=== PATIENT | female | born 1975 | race American Indian/Alaskan Native ===

== ENCOUNTER 2020-09-24 15:21 | Emergency (ER) | payer MEDICAID ==
--- NOTE | 2020-09-24 19:28 | EDM.PDOC ---
ED HPI GENERAL MEDICAL PROBLEM - General Chief Complaint: Skin Complaint Stated Complaint: RASH AND SWELLIN Time Seen by Provider: 09/24/20 18:00 Source of Information: Reports: Patient History Limitations: Reports: No Limitations - History of Present Illness INITIAL COMMENTS - FREE TEXT/NARRATIVE: Tammy is a 45-year-old female presenting to the ED for evaluation of rash that started out just above her buttocks 1 month ago and now spread to include her right lower extremity on the lateral aspect of the calf going down to the ankle. The lesions are initially pruritic but then break open and become very painful. They have ulcerative bases and are weeping plasma. There has been some purulent discharge as well. The area around the rash is inflamed. The patient denies any fever or chills. She is diabetic but is not on any medication at this time. Her last hemoglobin A1c was 5.0. She was initially seen and treated for this at [facility] which they thought was shingles, however, it is bilateral in the buttock area and on the lateral side of the right calf. I do not see any sign at this time of vesicles. Right Lower Leg Pain Score (Numeric/FACES): 8 - Related Data Allergies Allergy/AdvReac Type Severity Reaction Status Date / Time No Known Allergies Allergy Verified 09/24/20 17:01 Home Meds: Home Meds Acetaminophen [Pain Relief] 975 mg PO BEDTIME 09/24/20 [History] Escitalopram [Lexapro] 20 mg PO DAILY 09/24/20 [History] Gabapentin [Neurontin] 300 mg PO TID 09/24/20 [History] Lisinopril/Hydrochlorothiazide [Lisinopril-Hctz 20-12.5 mg Tab] 1 each PO DAILY 09/24/20 [History] Methadone [methadone Intensol U/D] 120 mg PO DAILY 09/24/20 [History] Past Medical History HEENT History: Reports: None Cardiovascular History: Reports: Hypertension Respiratory History: Reports: None Gastrointestinal History: Reports: Cholelithiasis Genitourinary History: Reports: None [employer] History: Reports: Musculoskeletal History: Reports: Arthritis Neurological History: Reports: Neuropathy, Diabetic, Other (See Below) Other Neuro History: nerve pain Psychiatric History: Reports: Anxiety, Depression Endocrine/Metabolic History: Reports: Diabetes, Type II Hematologic History: Reports: None Immunologic History: Reports: None Oncologic (Cancer) History: Reports: None Dermatologic History: Reports: Other (See Below) Other Dermatologic History: skin sores buttock and right lower leg - Infectious Disease History Infectious Disease History: Reports: Chicken Pox, Shingles - Past Surgical History HEENT Surgical History: Reports: None GI Surgical History: Reports: Cholecystectomy Social & Family History - Caffeine Use Caffeine Use: Reports: Coffee, Soda - Recreational Drug Use Recreational Drug Use: Yes Recreational Drug Type: Reports: Other (see below) Other Recreational Drug Type: narcotics none since 2011 ED ROS GENERAL - Review of Systems Review Of Systems: See Below Constitutional: Reports: No Symptoms HEENT: Reports: No Symptoms Respiratory: Reports: No Symptoms Cardiovascular: Reports: No Symptoms Endocrine: Reports: No Symptoms GI/Abdominal: Reports: No Symptoms : Reports: No Symptoms Musculoskeletal: Reports: No Symptoms Skin: Reports: Lesions (Painful ulcerative lesions on the low back just above the buttocks bilaterally and on the right lateral calf. Lesions are initially pruritic but then become very tender when they erupt form ulcers. ) Neurological: Reports: No Symptoms Psychiatric: Reports: No Symptoms Hematologic/Lymphatic: Reports: No Symptoms Immunologic: Reports: No Symptoms ED EXAM, SKIN/RASH Exam: See Below Exam Limited By: No Limitations General Appearance: Alert, No Apparent Distress Back Exam: Other (Numerous skin lesions that are ulcerative on the low back and buttocks. These lesions are no longer weeping, however, they have deep cratered ulcers that are starting to heal.) Neurological: Alert, Oriented, Normal Cognition, No Motor/Sensory Deficits Skin: Wound/Incision (Ulcerative lesions on the buttock, low back, and right lateral calf. The lesions on the calf are deep ulcers with purple borders and are weeping serosanguineous fluid and suppurative fluid. The lesions are very tender.) Location, Skin: Back, Lower Extremity, Right Characteristics: Other (Ulcerative with purple edges) Associated features: Warmth, Tenderness, Swelling, Induration, Inflammation, Weeping Lymphatic: No Adenopathy Course - Vital Signs Last Recorded V/S: Last Vital Signs Temp 36.4 C 09/24/20 16:59 Pulse 68 09/24/20 16:59 Resp 16 09/24/20 16:59 BP 151/82 H 09/24/20 16:59 Pulse Ox 97 09/24/20 16:59 - Orders/Labs/Meds Labs: Laboratory Tests 09/24/20 09/24/20 Range/Units 18:20 18:20 WBC 5.7 (4.5-11.0) K/uL RBC 4.80 (3.30-5.50) M/uL Hgb 11.0 L (12.0-15.0) g/dL Hct 36.1 (36.0-48.0) % MCV 75 L (80-98) fL MCH 23 L (27-31) pg MCHC 31 L (32-36) % Plt Count 298 (150-400) K/uL Neut % (Auto) 53.5 (36-66) % Lymph % (Auto) 30.0 (24-44) % [place] % (Auto) 8.1 H (2-6) % Eos % (Auto) 7.9 H (2-4) % Baso % (Auto) 0.5 (0-1) % ESR 50 H (0-25) mm/hr Sodium 138 L (140-148) mmol/L Potassium 3.9 (3.6-5.2) mmol/L Chloride 101 (100-108) mmol/L Carbon Dioxide 27 (21-32) mmol/L Anion Gap 13.9 (5.0-14.0) mmol/L BUN 10 (7-18) mg/dL Creatinine 0.8 (0.6-1.0) mg/dL Est Cr Clr Drug Dosing 93.78 mL/min Estimated GFR (MDRD) > 60 (>60) Glucose 105 (74-106) mg/dL Calcium 8.6 (8.5-10.1) mg/dL C-Reactive Protein 3.03 H (0.0-0.3) mg/dL Departure - Departure Time of Disposition: 19:32 Disposition: Home, Self-Care 01 Clinical Impression: Superficial ulcerative lesion, MRSA cellulitis - Discharge Information Instructions: MRSA Infection, Diagnosis, Adult Referrals: PCP,None [Primary Care Provider] - Care Plan Goals: Your skin lesions are worrisome for an autoimmune disease called pyoderma gangrenosum, but they also could be due to an infection that is disseminated throughout your body called methicillin-resistant staph aureus (MRSA). For this reason we will put you on Bactrim double strength 1 tablet twice daily for 10 days to treat infection and prednisone taper for 10 days to help calm down the immune system. Follow-up with your primary care provider in 7 to 10 days for reevaluation or return to the ED should things worsen. Sepsis Event Note (ED) - Evaluation Sepsis Screening Result: No Definite Risk - Focused Exam Vital Signs: Vital Signs Temp Pulse Resp BP Pulse Ox 09/24/20 16:59 36.4 C 68 16 151/82 H 97 09/24/20 16:36 36.4 C 68 16 151/82 H 97 - Problem List & Annotations (1) MRSA cellulitis SNOMED Code(s): 354675486 Code(s): L03.90 - CELLULITIS, UNSPECIFIED; B95.62 - METHICILLIN RESIS STAPH INFCT CAUSING DISEASES CLASSD [id number] Status: Acute Priority: Medium Current Visit: Yes (2) Superficial ulcerative lesion SNOMED Code(s): 787621305 Code(s): L98.499 - NON-PRESSURE CHRONIC ULCER OF SKIN OF SITES W UNSP SEVER ITY Status: Acute Priority: Medium Current Visit: Yes - Problem List Review Problem List Initiated/Reviewed/Updated: Yes
== END 2020-09-24 19:45 | disposition home or self-care (01) ==
LOC: JP.ED 15:21
DX: E11.622 Type 2 diabetes mellitus with other skin ulcer (principal); L98.411 Non-pressure chronic ulcer of buttock limited to breakdown of skin; L03.317 Cellulitis of buttock; B95.62 Methicillin resistant Staphylococcus aureus infection as the cause of diseases classified elsewhere; I10 Essential (primary) hypertension; Z79.899 Other long term (current) drug therapy
CPT/HCPCS: 36415; 80048; 85025; 85651; 86140; 99283